=== PATIENT | male | born 1980 | race Caucasian/White ===

== ENCOUNTER 2022-08-17 06:42 | Day surgery (SDC) | payer MEDICAID ==
[2022-08-17] MEDS ORDERED: Midazolam 1 MG/ML 2 ML SDV ONE (07:23)
[2022-08-17] MEDS ORDERED: Propofol 200 MG/20 ML SDV ONE ×2 (07:23→08:25)
[2022-08-17] MEDS ORDERED: fentaNYL 50 MCG/ML SDV ONE (07:23)
[2022-08-17] MEDS ORDERED: Lactated Ringers 1,000 ML IV SCH (07:30)
[2022-08-17 10:02] VITALS: BP 123/91; PULSE 72
== END 2022-08-17 10:18 | disposition home or self-care (01) ==
LOC: JP.SDS 06:42
PROVIDERS: ATTEND Family Medicine
DX: K29.50 Unspecified chronic gastritis without bleeding (principal); K62.1 Rectal polyp; K64.8 Other hemorrhoids; I10 Essential (primary) hypertension; K21.9 Gastro-esophageal reflux disease without esophagitis; F41.9 Anxiety disorder, unspecified; Z87.19 Personal history of other diseases of the digestive system; Z88.0 Allergy status to penicillin; Z79.899 Other long term (current) drug therapy
CPT/HCPCS: 88305; 88342; J2250; J2704; J3010; J7120